=== PATIENT | male | born 1980 | race Caucasian/White ===

== ENCOUNTER 2020-06-19 15:36 | Emergency (ER) | payer OTHER ==
[~2020-06-19] VITALS: Ht 182.9 cm; Wt 102.1 kg
[2020-06-19] MEDS ORDERED: KEFLEX500 MG PO (18:53)
== END 2020-06-19 19:05 | disposition home or self-care (01) ==
LOC: ED 15:36
DX: L03.115 Cellulitis of right lower limb (principal); F17.200 Nicotine dependence, unspecified, uncomplicated; Z88.0 Allergy status to penicillin; Z88.1 Allergy status to other antibiotic agents; Z88.4 Allergy status to anesthetic agent
CPT/HCPCS: 71046; 73610; 93971; 99285-25; A9270